=== PATIENT | female | born 1945 ===

== ENCOUNTER 2018-08-05 13:06 | Outpatient (CLI) | payer OTHER ==
[~2018-08-05 13:06] MED LIST: ADULT ASPIRIN81 MG PO; CIPRO500 MG PO; FERROUS SU324 ( 65 ) PO; FOLIC ACID1 MG PO; LOSARTAN-HCTZ1 EACH PO; PROTONIX40 M1 PO; RISEDRONATE SODI5 MG PO; TYLENOL-CODEINE1 TAB PO; ZANTAC300 MG PO
== END 2018-08-05 13:09 | disposition home or self-care (01) ==
LOC: SONOGRAMA 13:06
DX: N60.11 Diffuse cystic mastopathy of right breast (principal); N60.12 Diffuse cystic mastopathy of left breast; N63.41 Unspecified lump in right breast, subareolar; R92.0 Mammographic microcalcification found on diagnostic imaging of breast